=== PATIENT | female | born 1980 ===

== ENCOUNTER 2016-12-13 11:17 | Emergency (ER) | payer MEDICAID ==
[2016-12-13 11:17] VITALS: BMI 26.5
[2016-12-13 11:22] VITALS: RESP 16; TEMP 98.7; O2SAT 99
[2016-12-13] MEDS ORDERED: Amoxicillin-Clav 875-125 mg Tab PO STA (12:06)
--- NOTE | 2016-12-13 12:12 | C.PDOC ---
History Of Present Illness 36 yo female w/PMHx of asthma, seasonal allergy, come in for evaluation of gradual onset of diffuse throbbing headache developed for past 3 days. Pt described pasin as aching, throbbing at time, worse with headache rotation and leaning forward. Pt admits, (+) for past few weeks seasonal allergy exacerbation with nasal congestion, runny nose. Pt admits, taking Aleeve at home with some improvement in headache. Pt sts, " had head injury 1 year ago, was seen at [facility] [place] when had CT head performed with normal results. Since then, developed some headaches". Pt denies PMD or Neurology F/U sine the injury. Otherwise, pt denies fever, chills, denies worse headache of life, dizziness, vertigo, visual change, focal deficits, neck pain, drooling, dyspnea, CP, SOB , palpitation, abd. pain, N/V/D, back pain, UTI sx, denies any other active complaints. Ambulate to Ed for evaluation, not in any apparent distress. Time Seen by Provider: 12/13/16 11:40 Chief Complaint (Nursing): Headache History Per: Patient History/Exam Limitations: no limitations Onset/Duration Of Symptoms: Days (3) Current Symptoms Are (Timing): Still Present Quality: Aching Preceeding Symptoms: None Past Medical History Reviewed: Historical Data, Nursing Documentation, Vital Signs Vital Signs: Last Vital Signs Temp 98.7 F 12/13/16 11:21 Pulse 78 12/13/16 11:21 Resp 16 12/13/16 11:21 BP 122/83 12/13/16 11:21 Pulse Ox 99 12/13/16 12:27 - Medical History PMH: Asthma, Kidney Stones Family History: States: No Known Family Hx - Social History Hx Alcohol Use: Yes Hx Substance Use: No Review Of Systems Except As Marked, All Systems Reviewed And Found Negative. Constitutional: Negative for: Fever, Chills Eyes: Negative for: Vision Change Cardiovascular: Negative for: Chest Pain Respiratory: Negative for: Shortness of Breath Musculoskeletal: Negative for: Neck Pain Neurological: Positive for: Headache (Throbbing headache). Negative for: Dizziness Physical Exam - Physical Exam Appears: Well, Non-toxic, No Acute Distress Skin: Normal Color, Warm, No Rash Head: Normacephalic, Other ((-) temporal tenderness or palpable pulsetile mass ( -) skin changes) Eye(s): bilateral: PERRL Ear(s): Bilateral: Normal Nose: Discharge (scant B/L clear rhinorhea, congestion.), Other (mild tenderness overlying paranasal sinuses L>R and frontal sinuses. No edema, no erythema, no skin changes.) Oral Mucosa: Moist, No Drooling, No Trismus Tongue: Normal Appearing Lips: Normal Appearing Throat: Normal, No Erythema, No Exudate, No Drooling Neck: Supple Chest: Symmetrical Cardiovascular: Rhythm Regular Respiratory: No Stridor, No Wheezing Gastrointestinal/Abdominal: Soft, No Tenderness Back: No CVA Tenderness Extremity: No Tenderness, No Pedal Edema, No Deformity Neurological/Psych: Oriented x3, Normal Speech, Normal Cognition, Cerebellar Signs, Normal Motor, Normal Sensation, Normal Reflexes ED Course And Treatment - Laboratory Results Urine POC: Negative O2 Sat by Pulse Oximetry: 99 Pulse Ox Interpretation: Normal Progress Note: On re-eavluation, pt is afebrile, hemodynamiclay stable. Non- toxic. Tolerate Po wlel in ED. Pt reports, moderate improvement in headache after ED treatment. PsuleOx 100% RA. ENT: No acute findings. neck: (-) meningeal sign, (-) JVD, no tenderness or palpable thrill. Lungs: CTA B/L, BS equal B/L. Abd: benign. Neurologicaly intact. NO clinical findings c/w neurovascular deficits or compromise. Pt has clinical findings c/w headache r/ o sinus headache, sinusitis. Pt advised and ref. to F/u with PMD, Neuro in 2-3 days for re-eval. return if any new changes. Medical Decision Making Medical Decision Making: PLAN: * HCG * Urinalysis * Augmentin PO * Reglan PO * Tramadol PO * Prednisone PO Disposition Counseled Patient/Family Regarding: Studies Performed, Diagnosis, Need For Followup, Rx Given - Disposition Referrals: [facility] [Outside] Rubens Tolbert MD [Staff Provider] - Disposition: HOME/ ROUTINE Disposition Time: 12:57 Condition: STABLE Additional Instructions: Take medication as prescribed Encourage fluids Follow up with PMD and Neurology in 2-3 days for re-evaluation. return to ED if any worsening or new changes. Prescriptions: Amoxicillin/Clavulanate [Augmentin 875 MG-125 MG] 1 tab PO BID #14 tab Prednisone [Deltasone] 40 mg PO DAILY #6 tablet traMADol [Ultram] 50 mg PO TID #7 tab Instructions: Sinusitis (ED), Tension Headache (ED) Print Language: UPPER SORBIAN - Clinical Impression Clinical Impression: Headache, Sinusitis - PA / [employer] / Resident Statement MD/DO has reviewed & agrees with the documentation as recorded. - Scribe Statement The provider has reviewed the documentation as recorded by the Scribe Shagufta Moreno All medical record entries made by the Emilyibapril were at my direction and personally dictated by me. I have reviewed the chart and agree that the record accurately reflects my personal performance of the history, physical exam, medical decision making, and the department course for this patient. I have also personally directed, reviewed, and agree with the discharge instructions and disposition.
[2016-12-13] MEDS ORDERED: Amoxicillin-Clav 875-125 mg Tab PO ONE (12:16)
[2016-12-13 12:40] LABS: RBC URINE < 1 /hpf (0-3); URINE BILIRUBIN NEGATIVE (NEGATIVE); URINE BLOOD NEGATIVE (NEGATIVE); URINE COLOR Yellow (YELLOW); URINE GLUCOSE (UA) NORMAL (Normal); URINE KETONE NEGATIVE (NEGATIVE); URINE LEUKOCYTE ESTERASE NEG Leu/uL (Negative); URINE PROTEIN NEGATIVE (NEGATIVE); URINE UROBILINOGEN NORMAL mg/dL (0.2-1.0); WBC URINE 1 /hpf (0-5)
[2016-12-13 13:12] VITALS: BP 120/69; PULSE 70
== END 2016-12-13 13:11 | disposition home or self-care (01) ==
LOC: C.ER 11:17
DX: J32.9 Chronic sinusitis, unspecified (principal); R51 Headache